=== PATIENT | male | born 1985 | race Caucasian/White ===

== ENCOUNTER 2018-05-12 16:58 | Emergency (ER) | payer OTHER ==
[2018-05-12 17:09] VITALS: BP 124/85
--- NOTE | 2018-05-12 17:56 | EDPHY ---
General Time Seen by Provider: 05/12/18 17:38 Narrative: CLINICAL IMPRESSION: Frostbite to fingers of both hands ASSESSMENT/PLAN: 33-year-old homeless male brought to the emergency department by his friend for frostbite sustained 3 days ago to the tips of digits 3 through 5 on both hands. Patient has no open wounds, necrosis, cyanosis, or evidence of vascular compromise. No secondary signs of infection. Tetanus reported as up-to-date. Blisters noted which I recommended he not de roof. Patient's wounds were dressed and he was referred to the burn center and primary care. Recommended avoiding using his hand as much as possible and keeping the hands warm. He does plan to go to the warming care home [employer] His friend will help with making appointments at burn center. Warning signs return to ED sooner outlined and discharge. DIFFERENTIAL DX: Differential includes but not limited to acute fracture, strain/sprain, joint dislocation, soft tissue contusion ED PROCEDURES: Procedure: Splint placement. A splint was applied to by furniture repair technician, supervised by myself. After application of the splint I returned and re-examined the patient. The splint was adequately immobilizing the joint and distal to the splint the patient's circulation and sensation was intact. ED COURSE: 5:50 p.m.: Patient assessed. First and 2nd degree frostbite injuries to all fingers of both hands. Tetanus up-to-date. We will dress the wounds. Referred to Burn Center. touring production manager has gone home for the day. Patient will try to be plugged into warming [employer]. CHIEF COMPLAINT: Bilateral hand pain HPI: 33-year-old homeless male presents to the emergency department with frostbite injury to all fingers of both hands sustained 2 days ago while he was smoking marijuana with friends and playing in the snow. Patient comes to the ED with his friend who pulls me aside privately stating that she works at [employer] and simply knows this patient. She reports he is homeless. Patient denies numbness or loss of sensation to the hands, he has redness and blisters with no necrosis or open wound. No reported fever or chills. He reports his tetanus is up-to-date. PAST MEDICAL HISTORY: None reported Pertinent Past Surgical History: None reported Social History: Homeless, smokes marijuana, smokes cigarettes REVIEW OF SYSTEMS: All other systems negative Constitutional: No fever, no chills Musculoskeletal: No deformity, + joint pain Skin: Positive for color change to fingers of both hands Neurological: No sensory loss or weakness. PHYSICAL EXAM: General Appearance: Alert, oriented, appropriate for age, cooperative, NAD, well hydrated, non-toxic appearing, VSS, no hypoxia. Neurological: Alert and oriented x 3, normal sensation and strength of extremities Skin: Blisters noted to the volar tips of all fingers to both hands sparing 2nd digit and thumb bilaterally. Patient has poked through some of these blisters. He has 1st degree mattson proximal to the blisters. Blisters do not extend proximally beyond the ED IP joints. He has full range of motion of all fingers. No lymphangitis. No evidence of tenosynovitis. Musculoskeletal: Full range of motion of all fingers on both hands. MEDICAL DECISION MAKING: Patient was seen independently. Secondary supervising physician at time of evaluation was Dr. Suarez. Diagnosis: Frostbite to fingers of both hands. New, requires workup Summary: See assessment and plan for summary of ED visit Patient Progress: Improved. - History Smoking Status: Current every day smoker - Objective Vital Signs: Initial Vital Signs Temperature (C) 36.5 C 05/12/18 17:05 Heart Rate 91 05/12/18 17:05 Respiratory Rate 18 05/12/18 17:05 Blood Pressure 124/85 H 05/12/18 17:05 O2 Sat (%) 96 05/12/18 17:05 O2 Delivery Mode Room Air Allergies/Adverse Reactions: No Known Allergies Allergy (Unverified 05/12/18 17:08) Home Medications: Medication Instructions Recorded NK [No Known Home Meds] 05/12/18 Departure - Departure Disposition: Home, Routine, Self-Care Clinical Impression: Frostbite of both upper extremities Condition: Fair Instructions: Frostbite (ED) Additional Instructions: DISCHARGE INSTRUCTIONS FROM YOUR DOCTOR Thank you for visiting our emergency department today. Please keep in mind that discharge from the emergency department does not mean that there is nothing wrong - it simply means that we have not identified an emergency condition that requires further evaluation or treatment in the hospital. You should always plan to follow up with primary care for re-evaluation of your condition in the next 2-3 days. If you have been referred to a specialist, please call as soon as possible (today or tomorrow) to schedule your follow up appointment at the appropriate time. [ YOU HAVE 1ST AND SECOND-DEGREE MATTSON FROM FROSTBITE TO THE FINGERS OF BOTH HANDS. IT IS IMPORTANT THAT YOU DO NOT REMOVE THE BLISTERS. PLEASE DRESS THE WOUNDS WITH BACITRACIN, POLYSPORIN, OR A TRIPLE ANTIBIOTIC OINTMENT. THESE CAN BE PURCHASED AT ANY LOCAL GROCERY STORE. KEEP THE FINGERS DRESSED. PLEASE DO NOT USE THE HANDS AND KEEP THEM ELEVATED. PLEASE FOLLOW-UP WITH A PRIMARY CARE DOCTOR, REFERRALS WERE GIVEN. YOU CAN ALSO FOLLOW UP WITH THE [facility] OR THE [facility]. [facility] CALL CENTER NUMBER IS [phone]. [facility] IS . THE WARMING ALF IS OPEN TONIGHT, CHECK-IN IS FROM 6:00 P.M. TO 7:30 P.M.. PLEASE ARRIVE WITHIN THAT WINDOW TO ENSURE THAT YOU HAVE A WARM PLACE TO STAY TONIGHT. KEEP HER HANDS WARM DURING THE DAY. AVOID COLD EXPOSURE MUCH POSSIBLE. RETURN TO THE EMERGENCY DEPARTMENT FOR INCREASED PAIN, BLUE OR BLACK DISCOLORATION TO THE HANDS, FEVERS, RED STREAKS GOING UP THE HANDS, OR ANY OTHER CONCERNS.] People present with illnesses and injuries in different ways, and it is always possible that we have missed something. You may always return for re-evaluation if symptoms worsen or if they are not improving or if you develop new/different symptoms. Again, thank you for choosing our emergency department. We hope that you feel better. Referrals: NONE *PRIMARY CARE P,. [Primary Care Provider] - As per Instructions [facility],. [Clinic] - As per Instructions
== END 2018-05-12 18:38 | disposition home or self-care (01) ==
DX: T33.531A Superficial frostbite of right finger(s), initial encounter (principal); T33.532A Superficial frostbite of left finger(s), initial encounter; X31.XXXA Exposure to excessive natural cold, initial encounter; F17.200 Nicotine dependence, unspecified, uncomplicated; Z59.0 Homelessness